=== PATIENT | male | born 1935 | race Caucasian/White ===

== ENCOUNTER 2018-03-31 17:13 | Outpatient (CLI) | payer OTHER ==
[2014-12-04 05:55] VITALS: BP 118/57
--- NOTE | 2018-04-01 06:44 | Diagnostic Imaging Report ---
[facility] [id number] [facility].[address] [id number] Report Submission Date: Mar 31, 2018 8:17:59 PM CDT Patient Study Name: ANIBAL STEEL Date: Mar 31, 2018 5:14:55 PM CDT Modality Type: DX Gender: M Description: CHEST : 39 Institution: [facility] Physician: MIN [facility]IVERS 2 views chest Clinical history: Short of air Findings: Heart size is enlarged. Pulmonary vasculature is normal. 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 No pleural effusion, pneumothorax or alveolar consolidation. Impression: Cardiomegaly Electronically signed on Mar 31, 2018 8:17:59 PM CDT by: Juventino ALAN
== END 2018-03-31 17:18 | disposition home or self-care (01) ==
LOC: RAD 17:13
PROVIDERS: ATTEND Internal Medicine Nephrology
DX: R06.89 Other abnormalities of breathing (principal)
CPT/HCPCS: 71046